=== PATIENT | female | born 1955 | race African-American/Black ===

== ENCOUNTER 2022-01-28 10:21 | Emergency (ER) | payer OTHER ==
[~2022-01-28] VITALS: Ht 154.9 cm; Wt 59.0 kg
[2022-01-28 10:25] VITALS: BP 116/67
[2022-01-28] MEDS ORDERED: ERYT1OIN6 EACHEYE (11:00)
[2022-01-28] MEDS ORDERED: DOXY-326 PO (11:00)
== END 2022-01-28 11:10 | disposition home or self-care (01) ==
LOC: ER 10:21
DX: H01.004 Unspecified blepharitis left upper eyelid (principal)
CPT/HCPCS: 99283